=== PATIENT | female | born 1970 | race Caucasian/White ===

== ENCOUNTER 2022-01-18 14:08 | Outpatient (RCR) | payer OTHER, SELFPAY ==
[2022-01-18 14:29] LABS: Basophils Percent Auto 0.8 % (0.0-3.0); Eosinophils Percent Auto 8.3 % (0.0-7.0); Hematocrit 40.3 % (33.0-51.0); Hemoglobin* 13.8 gm/dL (12.0-16.0); Lymphocytes Percent Auto 28.9 % (20-44); Mean Corpuscular HGB Conc 34 gm/dL (32-36); Mean Corpuscular Hemoglobin 32 pg (26-34); Mean Corpuscular Volume 93 fL (80-100); Monocytes Percent Auto 8.5 % (0.0-11.0); Neutrophils Percent Auto 53.5 % (42.0-72.0); Platelet Count* 176 K/uL (140-440); RDW Coefficient of Variation % 11.8 % (11.5-15.5); Red Blood Count 4.35 m/uL (4.00-5.20); White Blood Count* 3.98 K/uL (4.50-11.00)
[2022-01-18 14:31] LABS: Slide Review Reflex No
[2022-01-18 14:54] LABS: Lactate Dehydrogenase* 519 U/L (313-618)
--- NOTE | 2022-03-31 15:40 | ONC.NURNOTE ---
Pt called stating she plans on switching to [place] to continue seeing Dr. Sykes. Pt due for follow up June 2022.
[2022-07-13 17:38] LABS: Basophils Percent Auto 0.7 % (0.0-3.0); Eosinophils Percent Auto 11.3 % (0.0-7.0); Hematocrit 39.3 % (33.0-51.0); Hemoglobin* 13.2 gm/dL (12.0-16.0); Immature Granulocytes Pct Auto 0.7 %; Mean Corpuscular HGB Conc 34 gm/dL (32-36); Mean Corpuscular Hemoglobin 30 pg (26-34); Mean Corpuscular Volume 90 fL (80-100); Monocytes Percent Auto 11.3 % (0.0-11.0); Platelet Count* 155 K/uL (140-440); RDW Coefficient of Variation % 12.4 % (11.5-15.5); Red Blood Count 4.36 m/uL (4.00-5.20); White Blood Count* 4.07 K/uL (4.50-11.00)
[2022-07-13 17:40] LABS: Slide Review Reflex No
[2022-07-13 18:03] LABS: Lactate Dehydrogenase* 237 U/L (120-246)
== END 2022-07-17 23:59 | disposition home or self-care (01) ==
LOC: CCIC 14:08
PROVIDERS: PCP Physician Assistant Medical; Visit Provider Internal Medicine Hematology & Oncology
DX: D72.819 Decreased white blood cell count, unspecified (principal); R53.83 Other fatigue
CPT/HCPCS: 36415; 83615; 85025; 99212; 99213; 99214

== ENCOUNTER 2022-07-26 18:54 | Outpatient (CLI) | payer OTHER, SELFPAY ==
--- NOTE | 2022-07-26 19:00 | CRLHL7_ITS ---
For Patients: As a result of the Cures Act, medical imaging exams and procedure reports are released immediately into your electronic medical record. You may view this report before your referring provider. If you have questions, please contact your health care provider. BILATERAL SCREENING MAMMOGRAM WITH COMPUTER-AIDED DETECTION AND TOMOSYNTHESIS TECHNIQUE: CC and MLO views were obtained. These mammographic images have been obtained using full-field digital technique. These mammographic images were interpreted with the benefit of computer-aided detection. Breast tomosynthesis was used in this interpretation. COMPARISON FILM: 06/02/21, 06/16/20, 06/21/19 FINDINGS: There are scattered areas of fibroglandular density. IMPRESSION: There is no radiographic evidence for malignancy. ASSESSMENT: BI-RADS Category 1: Negative RECOMMENDATION: Routine screening mammogram in 1 year. A lay language report of this examination will be provided to the patient. XOCHITL BAR M.D. Diagnostic/Breast Radiologist [email or web address] ROSANA/saeed Transcribed: 07/27/2022, 2:[address]/Dictated by: Xochitl Bar MD @ 07/27/2022 9:15:00 AM (Electronically Signed)
== END 2022-07-26 18:55 | disposition home or self-care (01) ==
LOC: MAMMO 18:54
PROVIDERS: PCP Physician Assistant Medical; Visit Provider Physician Assistant Medical
DX: Z12.31 Encounter for screening mammogram for malignant neoplasm of breast (principal)
CPT/HCPCS: 77063; 77067

== ENCOUNTER 2022-11-30 16:25 | Outpatient (CLI) | payer OTHER, SELFPAY | END 2022-11-30 16:26 | disposition home or self-care (01) | PROVIDERS: PCP Physician Assistant Medical; Visit Provider Physician Assistant Medical | DX: N39.0 Urinary tract infection, site not specified (principal); R53.83 Other fatigue; D72.10 Eosinophilia, unspecified | CPT/HCPCS: 80053; 82306; 82607; 83001; 84443; 86039; 86140; 86200; 86431; 86617; 86812; 87086; 87186 ==

== ENCOUNTER 2022-12-07 16:51 | Outpatient (CLI) | payer OTHER, SELFPAY ==
--- NOTE | 2022-12-07 17:00 | CRLHL7_ITS ---
For Patients: As a result of the Century Cures Act, medical imaging exams and procedure reports are released immediately into your electronic medical record. You may view this report before your referring provider. If you have questions, please contact your health care provider. INDICATION: abdominal distension COMPARISON: none TECHNIQUE: 2D rose scale and color Doppler images were acquired of the pelvis using a transabdominal and transvaginal approach. FINDINGS: Sonographic images demonstrate a normal size and smooth outer contour of the uterus. Uterus measures 6.1 cm in length by 3.2 cm in AP diameter by 4.7 cm in transverse dimension. Posterior fundal intramural fibroid is present measuring 1.4 x 1.2 x 1.5 cm. The endometrial lining measures 3 mm in composite thickness. The right ovary measures 1.7 x 0.9 x 1.2 cm in size and the left ovary measures 1.6 x 0.8 x 0.9 cm. The ovaries demonstrate normal arterial and venous blood flow on color Doppler analysis. There are no suspicious fluid collections within the cul-de-sac. IMPRESSION: Intramural fibroid within the left posterior fundal myometrium measuring 1.5 cm. Endometrial thickness 3 millimeters. Dictated by Afshin Novak MD @ 12/08/2022 9:04:07 AM (Electronically Signed)
== END 2022-12-07 16:52 | disposition home or self-care (01) ==
LOC: US 16:51
PROVIDERS: PCP Physician Assistant Medical; Visit Provider Physician Assistant Medical
DX: R14.0 Abdominal distension (gaseous) (principal); D25.1 Intramural leiomyoma of uterus; R93.89 Abnormal findings on diagnostic imaging of other specified body structures
CPT/HCPCS: 76830; 76856

== ENCOUNTER 2022-12-20 18:02 | Outpatient (CLI) | payer OTHER, SELFPAY | END 2022-12-20 18:03 | disposition home or self-care (01) | LOC: NFLDREF 12-23 13:16 | PROVIDERS: PCP Physician Assistant Medical; Referring Provider Physician Assistant Medical; Visit Provider Physician Assistant | DX: R35.0 Frequency of micturition (principal); N95.1 Menopausal and female climacteric states | CPT/HCPCS: 87086 ==

== ENCOUNTER 2023-03-21 13:54 | Outpatient (RCR) | payer OTHER, SELFPAY | END 2023-09-17 23:59 | disposition home or self-care (01) | LOC: CCIC 13:54 | PROVIDERS: PCP Physician Assistant Medical; Referring Provider Physician Assistant Medical; Visit Provider Internal Medicine Hematology & Oncology | DX: D72.819 Decreased white blood cell count, unspecified (principal); R16.1 Splenomegaly, not elsewhere classified | CPT/HCPCS: 36415; 83615; 85025; 99212; 99213; 99214 ==

== ENCOUNTER 2023-07-28 15:14 | Outpatient (CLI) | payer OTHER, SELFPAY ==
--- NOTE | 2023-07-28 15:20 | MM_ITS ---
Patient: EUGENIO MONTOYA Facility:?[facility] Patient ID:?[id number] Site Patient ID:?[id number]. Site :?[id number] Study:?XRay-Breast Bilateral 3D W/CAD-07/28/2023 3:41:57 PM Ordering Physician:Lachlele Adorno Final Report: BILATERAL SCREENING MAMMOGRAM WITH COMPUTER-AIDED DETECTION AND TOMOSYNTHESIS TECHNIQUE: CC and MLO views were obtained. These mammographic images have been obtained using full-field digital technique. These mammographic images were interpreted with the benefit of computer-aided detection. Breast Tomosynthesis was used in this interpretation. COMPARISON FILM: 07/26/22, 06/22/21, 06/16/20. FINDINGS: The breasts are almost entirely fatty IMPRESSION: There is no radiographic evidence for malignancy. ASSESSMENT: BI-RADS Category 1: Negative RECOMMENDATION: Routine screening mammogram in 1 year. A lay language report of this examination will be provided to the patient. Afshin Novak M.D. Diagnostic Radiologist [email or web address] ONELIA/niraj Transcribed: 1:44 p.mAustin healy/Dictated by: Afshin Novak MD @ 08/01/2023 12:14:00 PM Signed by:?Afshin Novak MD @08/01/2023 1:52:38 PM (Electronic Signature)
== END 2023-07-28 15:15 | disposition home or self-care (01) ==
LOC: MAMMO 15:15
PROVIDERS: PCP Physician Assistant Medical; Visit Provider Physician Assistant Medical
DX: Z12.31 Encounter for screening mammogram for malignant neoplasm of breast (principal)
CPT/HCPCS: 77063; 77067

== ENCOUNTER 2023-12-21 10:00 | Outpatient (CLI) | payer OTHER, SELFPAY | END 2023-12-21 10:01 | disposition home or self-care (01) | LOC: NFLDREF 12-24 07:07 | PROVIDERS: PCP Physician Assistant Medical; Referring Provider Physician Assistant Medical; Visit Provider Physician Assistant Medical | DX: R35.0 Frequency of micturition (principal); R30.0 Dysuria; N39.0 Urinary tract infection, site not specified | CPT/HCPCS: 87086; 87186 ==

== ENCOUNTER 2024-04-16 08:23 | Outpatient (CLI) | payer OTHER, SELFPAY | END 2024-04-16 08:24 | disposition home or self-care (01) | LOC: NFLDREF 04-17 05:28 | PROVIDERS: PCP Physician Assistant Medical; Referring Provider Physician Assistant Medical; Visit Provider Physician Assistant Medical | DX: R79.89 Other specified abnormal findings of blood chemistry (principal); R35.0 Frequency of micturition | CPT/HCPCS: 80053; 80061; 87086 ==

== ENCOUNTER 2024-04-22 16:45 | Outpatient (CLI) | payer OTHER, SELFPAY ==
[2024-04-22 17:25] LABS: Lab Add On Test New Spec Needed
== END 2024-04-22 16:46 | disposition home or self-care (01) ==
PROVIDERS: PCP Physician Assistant Medical; Visit Provider Physician Assistant Medical
DX: M25.50 Pain in unspecified joint (principal)
CPT/HCPCS: 86140

== ENCOUNTER 2024-08-06 17:36 | Outpatient (CLI) | payer OTHER, SELFPAY ==
--- NOTE | 2024-08-06 17:40 | CRLHL7_ITS ---
For Patients: As a result of the Century Cures Act, medical imaging exams and procedure reports are released immediately into your electronic medical record. You may view this report before your referring provider. If you have questions, please contact your health care provider. INDICATION: 3D screening mammogram, asymptomatic 54F COMPARISON: 07/28/23, 07/26/22, 06/22/21 TECHNIQUE: CC and MLO views were obtained. These mammographic images have been obtained using full-field digital technique. These mammographic images were interpreted with the benefit of computer aided detection and tomosynthesis. BREAST COMPOSITION: The breasts are almost entirely fatty. FINDINGS: No suspicious findings. ASSESSMENT: BI-RADS 1 Negative RECOMMENDATION: Annual screening mammogram. A lay language report of this examination will be provided to the patient. Dictated by: Afshin Novak MD @ 08/08/2024 10:47:07 (Electronically Signed)
== END 2024-08-06 17:37 | disposition home or self-care (01) ==
LOC: MAMMO 17:37
PROVIDERS: PCP Physician Assistant Medical; Visit Provider Physician Assistant Medical
DX: Z12.31 Encounter for screening mammogram for malignant neoplasm of breast (principal)
CPT/HCPCS: 77063; 77067